=== PATIENT | male | born 1955 | race Caucasian/White ===

== ENCOUNTER 2016-11-23 10:33 | Inpatient (IN) | payer BC ==
[2016-11-23] VITALS (13 sets, daily range): BP systolic 129–177; BP diastolic 49–67; PULSE 56–77; TEMP 98.2–98.9
[~2016-11-23] VITALS: Ht 177.8 cm; Wt 106.0 kg
[~2016-11-23 10:33] MED LIST: CALTRATE-600 W600 MG PO; FERROUS SU325 MG/TAB PO; FISH OIL CONC1000 MG PO; FOLIC ACID PO; FORTAMET500 MG PO; GLUCOSAMINE/CHONDROI PO; IBUPROFEN800 MG PO; LISINOPRIL/HCTZ1 TA1 PO; MVI PO; VITAMIN C500 MG PO; VITAMIN E200 I1 PO
[2016-11-23] MEDS ORDERED: CIPRO 500MG TA500 MG PO (13:59)
[2016-11-23] MEDS ORDERED: PRINZIDE 12.5 M1 TA1 PO (14:00)
[2016-11-23] MEDS ORDERED: NORVASC 10MG10 MG PO (14:00)
[2016-11-23] MEDS ORDERED: GLUCOPHAGE XR500 M1 PO (14:01)
[2016-11-23] MEDS ORDERED: LOPRESSOR 550 MG/TAB PO (14:01)
[2016-11-23] MEDS ORDERED: TYLENOL 325MG325 MG PO (14:03)
[2016-11-23] MEDS ORDERED: ATIVAN 0.50.5 MG/TAB PO (15:57)
[2016-11-23] MEDS ORDERED: ZOCOR 20MG20 MG (15:58)
[2016-11-24 01:54] LABS: HEMATOCRIT 23.9 % (42.0-52.0); HEMOGLOBIN 7.8 g/dl (13.5-18.0)
[2016-11-24 04:34] VITALS: BP 157/63; PULSE 62; TEMP 98.5
[2016-11-24 07:24] VITALS: BP 178/68; PULSE 72; TEMP 97.8
[2016-11-24 07:47] LABS: HEMATOCRIT 24.4 % (42.0-52.0); HEMOGLOBIN 7.7 g/dl (13.5-18.0)
[2016-11-24 11:07] VITALS: BP 142/59; PULSE 51; TEMP 98
[2016-11-24 15:19] VITALS: BP 151/64; PULSE 61; TEMP 98.1
[2016-11-24] MEDS ORDERED: PROTONIX 40MG T40 MG PO (15:46)
[2016-11-24] MEDS ORDERED: ULTRAM 50MG TAB50 MG PO (15:47)
[2016-11-24] MEDS ORDERED: FERROUS SU325 MG/TAB PO (15:50)
[2016-11-24 15:51] VITALS: BP 107/57; PULSE 63
== END 2016-11-24 19:18 | disposition home or self-care (01) | DRG 378 ==
LOC: MEDICAL 11:19
PROVIDERS: Family Medicine; Surgery
PROC: 0DJD8ZZ Inspection of Lower Intestinal Tract, Via Natural or Artificial Opening Endoscopic (ICD-10-PCS; principal; 2016-11-24 14:00)
PROC: 0DJ08ZZ Inspection of Upper Intestinal Tract, Via Natural or Artificial Opening Endoscopic (ICD-10-PCS; 2016-11-24 14:00)
DX: K25.0 Acute gastric ulcer with hemorrhage (principal); D62 Acute posthemorrhagic anemia; I10 Essential (primary) hypertension; E11.9 Type 2 diabetes mellitus without complications; Z85.46 Personal history of malignant neoplasm of prostate; Z87.891 Personal history of nicotine dependence; T39.315A Adverse effect of propionic acid derivatives, initial encounter
CPT/HCPCS: C1751; C9113; J1644; J2704; J7030; P9016

== ENCOUNTER → 2018-04-10 | Outpatient (CLI) | payer BC ==
[~2018-04-10] MED LIST changes: +ATIVAN 0.50.5 MG/TAB PO; +CIPRO 500MG TA500 MG PO; +GLUCOPHAGE XR500 M1 PO; +LOPRESSOR 550 MG/TAB PO; +NORVASC 10MG10 MG PO; +PRINZIDE 12.5 M1 TA1 PO; +PROTONIX 40MG T40 MG PO; +TYLENOL 325MG325 MG PO; +ULTRAM 50MG TAB50 MG PO; +ZOCOR 20MG20 MG
== END ==
LOC: COL.RAD 08:10
DX: M19.011 Primary osteoarthritis, right shoulder (principal)
CPT/HCPCS: J3301; Q9967

== ENCOUNTER 2018-06-28 10:21 | Inpatient (IN) | payer BC ==
[~2018-06-28] VITALS: Ht 172.7 cm; Wt 96.6 kg
[~2018-06-28 10:21] MED LIST changes: -ZOCOR 20MG20 MG; +ZOCOR 20MG20 MG PO
[2018-08-27] VITALS (11 sets, daily range): BP systolic 147–180; BP diastolic 53–63; PULSE 53–84; TEMP 97.7–98.6
[2018-08-27] MEDS ORDERED: TYLENOL W/COD1 UDTAB PO (01:38)
[2018-08-27] MEDS ORDERED: ATIVAN 1MG T1 MG/TAB PO (01:39)
[2018-08-27] MEDS ORDERED: MULTIPLE VITAMI1 CAP PO (01:41)
[2018-08-27] MEDS ORDERED: TYLENOL 8 HR PO (05:33)
--- NOTE | 2018-08-27 06:52 | NUR ---
Patient prepared for surgery with no incidents. Admission B and assessment completed. Med-rec and allergies reviewed and updated. Patient sent down to surgery with Vinny at 0615 per bedcart. Report called to Edu Moreland CRNA.
--- NOTE | 2018-08-27 12:15 | NUR ---
returned to room from PACU per bed, awake and alert but sleepy, IV infusing into left IJ and placed on pump at 100ml/hr, O2 on at 3L/NC, BP cuff on left leg, aquacel dressing to right shoulder CD&I and ice in place, has sensation to left hand and is able to move fingers, full assessment completed, see interventions for further info, denies needs at this time
--- NOTE | 2018-08-27 13:00 | NUR ---
appears to be dozing, has taken sips of water and tolerates well
--- NOTE | 2018-08-27 13:30 | NUR ---
sitting up in bed and having clear liquids, staff assisting him with eating
--- NOTE | 2018-08-27 14:30 | NUR ---
JACK and SW student met with patient to discuss discharge planning. Patient lives in [facility] alone. His PCP is Dr Black and he obtains his medications from [facility]. Patient plans on staying with his sister at discharge however she works 3/4 evenings a week and patient is worried about caring for himself when she is gone. SW talked with him about private paying for a facility or home health. He would like to look into what his insurance would cover for hh. Patient would like referral sent to [facility] . SW called Marco A and faxed referral. Patient does say he has a little money saved to pay for services if needed. JACK will continue to follow to assist in dc planning.
--- NOTE | 2018-08-27 14:50 | NUR ---
reported to me by KATYA Dyson that patient had clear liquids and then had an emesis of approx 150ml, medicated with zofran 4mg slow iV, appears to be sleeping now
--- NOTE | 2018-08-27 15:00 | NUR ---
appears to continue to sleep
--- NOTE | 2018-08-27 16:00 | NUR ---
awake now and talking with social worker health services,
--- NOTE | 2018-08-27 16:19 | NUR ---
JACK received a call from [facility] who reports patients insurance will cover PT/OT/SN with the right orders however they will not cover private duty care. SW met with patient who reports he will think about the option of private paying over night but that he will most likely go with that option as he cant be alone. JACK will follow up tomorrow
--- NOTE | 2018-08-27 16:54 | NUR ---
PT NOT IN ROOM YET, LEFT IS BY SINK.
--- NOTE | 2018-08-27 17:30 | NUR ---
awake resting in bed, offered something to eat but declines at this time as he doesn't want to be sick again, will call when he is ready, denies other needs
--- NOTE | 2018-08-27 18:45 | NUR ---
bedside shift report given to KATYA Colón
--- NOTE | 2018-08-27 20:00 | NUR ---
Assessment completed. Patient is A&O x 4. VSS, currently on 3 liters of supplemental O2 via nasal cannula. Chickasaw started for pain control. Aquacell dressing to right shoulder with a scant amount of drainage noted. Right shoulder abductor in place. Patient denies any tingling or numbness to RUE and is able to move fingers. Patient has a left arm amputation and does require assistance with eating, drinking and any activity. Tolerating small snacks at this time with no c/o nausea, reports not having much of an appetite this evening. Cartagena catheter to DD with yellow clear urine draining. BLE edema noted. BLE scds on. IVF infusing through left internal juglar, flushes well with good blood return. INT to right foot flushes well. Will ambulate with patient later this evening. Bed is in a low position with soft pad touch call light in place. Denies any concerns or needs.
--- NOTE | 2018-08-27 23:00 | NUR ---
Patient up ambulating the burns with assist x 2, after ambulating 100 feet patient stated he needed to stop and was noticed becoming pale and stating he felt a little dizzy. Vitals taken at that time and oxygen saturation noted to be 85%, portable oxygen applied and patient wheeled back to the doorway and was able to ambulate back to the bed. Patient denied feeling dizzy or lightheaded once back into the room. Assisted with getting back into bed. Patient denies any concerns or needs. Bed remains in a low position with soft-pad call light in reach.
[2018-08-28 00:26] VITALS: BP 146/56; PULSE 65; TEMP 99.2
--- NOTE | 2018-08-28 01:13 | NUR ---
Patient is resting in bed, denies any pain or any concerns at this time.
[2018-08-28 03:20] VITALS: BP 154/65; PULSE 64; TEMP 99.3
--- NOTE | 2018-08-28 05:38 | NUR ---
Patient has rested well through the night. VSS, remains on 3 liters of O2 via NC. Pain has been controlled with oral pain regimen. Aquacell dressing to right shoulder remains with a scant amount of drainage, no increase through the shift. Right shoulder abductor sling in place. Cartagena catheter remains to DD with yellow clear urine. Assisting patient with eating, drinking and taking medications. Denies any concerns or needs at this time. Bed remains in a low position with call light in reach.
--- NOTE | 2018-08-28 06:50 | NUR ---
awake resting in bed, bedside shift report received from KATYA Colón
--- NOTE | 2018-08-28 07:50 | NUR ---
resting in bed, full assessment completed, see interventions for further info, he is hot and diaphoretic but states this is normal for him, denies pain, will assist with ordering breakfast
[2018-08-28 09:06] VITALS: BP 161/57; PULSE 70; TEMP 99.6
--- NOTE | 2018-08-28 11:00 | NUR ---
up in chair and denies pain or needs
--- NOTE | 2018-08-28 11:28 | NUR ---
SW student left VM for Marco A, with [facility], regarding possible HH and private duty services for patient. SW to continue to follow.
[2018-08-28 12:00] VITALS: BP 184/81; PULSE 61; TEMP 98.8
--- NOTE | 2018-08-28 12:00 | NUR ---
remains up in chair, denies needs
--- NOTE | 2018-08-28 13:05 | NUR ---
assisted him with eating lunch, c/o pain and medicated with hydrocodone 7.5mg 2 tabs for c/os pain 12/18
--- NOTE | 2018-08-28 15:00 | NUR ---
awake and visiting with a friend
--- NOTE | 2018-08-28 16:02 | NUR ---
Tracy, with [facility], came and talked to the patient about private care nursing. SW student met with patient afterwards to check in. Patient reports that Tracy will be back tomorrow morning (08/29) around 1000 to fill out some paperwork. Patient states that he is agreeable with the plan to go home with his sister and have private pay nursing through [facility] during the hours that his sister is at work. Patient is agreeable to private pay. Patient did state [facility] may not be able to start until Sunday. Patient is going to ask his brother to help with care over the weekend when his sister has work. SW to continue to follow.
--- NOTE | 2018-08-28 16:08 | NUR ---
physical and occupational therapy were in to work with patient, assisted back to bed, garcia catheter disconinued
[2018-08-28 16:40] VITALS: BP 162/51; PULSE 66; TEMP 99.1
--- NOTE | 2018-08-28 17:42 | NUR ---
assisted him with ordering supper
--- NOTE | 2018-08-28 18:45 | NUR ---
bedside shift report given to KATYA Colón and KATYA Linares, supper here and [employer] in to assist him with eating, visiting with brother
[2018-08-28 19:32] VITALS: BP 145/63; BP 165/63; PULSE 67; TEMP 99.3
--- NOTE | 2018-08-28 19:38 | NUR ---
Report received from KATYA Soto. Patient is sitting up in bed and requested right shoulder abductor sling be re-adjusted. Sat up on the edge of the bed to re-adjust and noted RIJ dressing was almost off, new sterile dressing placed and dated. Patient reports pain 5/10 to right shoulder, denies needing any pain medication at this time. Bed is in a low position with soft-pad call light in reach.
--- NOTE | 2018-08-28 19:50 | NUR ---
Assessment completed. Patient is A&O x 4. VSS, currently on 2 liters of supplemental O2 via nasal cannula. Reports minimal pain to right shoulder at this time, denies needing any pain medication at this time. Aquacell dressing to right shoulder has a scant amount of drainage. Right shoulder abductor sling in place. Patient has full sensation to RUE. Left internal triple lumen jugular flushes well with good blood return, dressing changed this shift. Tolerating diet with no c/o nausea. Voiding with no difficulities. 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 Denies any concerns or needs at this time. Bed is in a low position with soft-pad call light in reach. Discussed ambulating in the hallway later this evening and patient agreed.
--- NOTE | 2018-08-28 23:26 | NUR ---
Patient ambulated at this time in the hallway with assist x 1, gait steady. Denied feeling dizzy or lightheaded. Assisted with repositioning back into bed and adjusting right shoulder brace. Fresh ice pack applied to right shoulder. Denies any concerns or needs at this time, soft-pad call light is within reach.
--- NOTE | 2018-08-29 01:58 | NUR ---
Patient up to the bathroom with standby assist, gait steady. Patient has been able to get himself up and down from the bed with minimal assistance. Once back to bed O2 sats checked and patient was at 86% on room air. 1.5 liters of supplemental O2 applied via NC and O2 sats came back up to 93%
[2018-08-29 03:38] VITALS: BP 155/64; PULSE 65; TEMP 97.7
--- NOTE | 2018-08-29 04:49 | NUR ---
Patient has rested well for the majority of the night, did wake up early this morning and stated he had a nightmare and had been sweating. Tempearture taken and was 97.7. Remains on 1 liter of O2 to keep O2 sats above 90% Reports minimal pain to right shoulder, denies needing any pain medication. Aquacell dressing to right shoulder with small amount of drainage, no increase through the shift. Fresh ice pack applied to right shoulder. Patient has been up with standby assist to the restroom through the night with a steady gait. BLE scds removed at this time. Denies any concerns or needs, call light is within reach.
[2018-08-29 07:17] VITALS: BP 186/53; PULSE 66; TEMP 98.8
[2018-08-29 12:05] VITALS: BP 165/53; PULSE 62; TEMP 98.6
[2018-08-29 17:06] LABS: BASO % 0.3 % (0.0-2.0); EOS # 0.3 (0.0-0.7); EOS % 3.2 % (0-4.0); GRAN # 8.3 (1.4-6.5); GRAN % 77.4 % (42.2-75.2); LYMPH # 0.8 (1.2-3.4); LYMPH % 7.6 % (20.0-51.0); MEAN CELL VOLUME 93 fl (80.0-100.0); MEAN CORPUSCULAR HGB CONC 32 g/dl (33.0-37.0); MEAN PLATELET VOLUME 10.5 fl (7.4-10.4); MONO # 1.2 (0.1-0.6); MONO % 10.9 % (1.7-9.3); PLATELET COUNT 153 K/mm3 (130-400); RED BLOOD COUNT 3.13 M/mm3 (4.20-5.60); REDCELL DISTRIBUTION WIDTH-CV 13.4 % (11.5-14.5)
[2018-08-29 17:09] LABS: HEMOGLOBIN 9.4 g/dl (13.5-18.0); MEAN CORPUSCULAR HEMOGLOBIN 30 pg (27.0-31.0)
[2018-08-29 17:25] LABS: BILIRUBIN,TOTAL 0.2 mg/dL (0.0-1.0); CALCIUM 8.5 mg/dL (8.4-10.2); CREATININE, serum 1.18 mg/dL (0.66-1.25); POTASSIUM 4.6 mmol/L (3.4-5.0); TOTAL PROTEIN 5.7 gm/dL (6.4-8.2)
[2018-08-29 18:12] VITALS: BP 155/48; PULSE 65
[2018-08-29 20:02] VITALS: BP 213/53; PULSE 92; TEMP 100.3
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
[2018-08-29 23:31] VITALS: BP 163/59; PULSE 66; TEMP 99
[2018-08-30 04:07] VITALS: BP 188/56; PULSE 82; TEMP 99
--- NOTE | 2018-08-30 05:13 | NUR ---
UNEVENTFUL NIGHT. PT REST/SLEEPING IN BED. HAS BEEN ASSISTED UP SEVERAL TIMES TO THE BATHROOM. PT HAS NOT HAD A BOWEL MOVEMENT AGAIN SINCE FIRST SHIFT. PT REFUSED THE STOOL SOFTENERS BECAUSE OF SEVERAL LOOSE STOOLS THAT HE HAS HAD. PT DENIES PAIN OR DISCOMFORT AT THIS TIME. CALL LIGHT WITHIN REACH.
[2018-08-30 06:41] LABS: BASO % 0.4 % (0.0-2.0); EOS # 0.2 (0.0-0.7); EOS % 2.6 % (0-4.0); GRAN # 6.6 (1.4-6.5); GRAN % 77.9 % (42.2-75.2); LYMPH # 0.8 (1.2-3.4); LYMPH % 9.3 % (20.0-51.0); MEAN CELL VOLUME 93 fl (80.0-100.0); MEAN CORPUSCULAR HGB CONC 32 g/dl (33.0-37.0); MEAN PLATELET VOLUME 10.6 fl (7.4-10.4); MONO # 0.8 (0.1-0.6); MONO % 9.4 % (1.7-9.3); PLATELET COUNT 155 K/mm3 (130-400); RED BLOOD COUNT 2.99 M/mm3 (4.20-5.60); REDCELL DISTRIBUTION WIDTH-CV 13.5 % (11.5-14.5)
[2018-08-30 06:44] LABS: HEMATOCRIT 27.7 % (42.0-52.0); HEMOGLOBIN 8.8 g/dl (13.5-18.0); MEAN CORPUSCULAR HEMOGLOBIN 29 pg (27.0-31.0)
[2018-08-30 06:49] LABS: CALCIUM 8.7 mg/dL (8.4-10.2); CREATININE, serum 0.95 mg/dL (0.66-1.25); POTASSIUM 4.6 mmol/L (3.4-5.0)
--- NOTE | 2018-08-30 07:05 | NUR ---
bedside shift report received from KATYA stephens
--- NOTE | 2018-08-30 07:45 | NUR ---
c/o heartburn/indigestion, given tums 1000mg, breakfast here, student will assist him with eating
[2018-08-30 08:00] VITALS: BP 183/58; PULSE 81; TEMP 98.6
--- NOTE | 2018-08-30 08:43 | NUR ---
in bed and appears to be sleeping, resp quiet and easy
--- NOTE | 2018-08-30 08:50 | NUR ---
physical therapy in to work with patient and ambulated out in the burns
[2018-08-30] MEDS ORDERED: ROXICODONE 55 MG/TAB PO (09:00)
[2018-08-30] MEDS ORDERED: ASPI325T6 PO (09:00)
[2018-08-30] MEDS ORDERED: NORCO 325 MG-7.1 TAB PO (09:00)
--- NOTE | 2018-08-30 09:00 | NUR ---
Assessment completed, patient is A&O x 4. VSS. Central line to L jugular is CDI. Patient has +2 pitting edema in BLE. Patient is laying in bed with SCDs running on BLE. Patient ate breakfast with assistance and had no nausea/vomiting. No complaints of pain at this time. Call light within reach.
--- NOTE | 2018-08-30 09:32 | NUR ---
sitting up in recliner after working with physical therapy, into bathroom with therapy and had large semiformed bowel movement and therapist assited with hygiene,
--- NOTE | 2018-08-30 10:39 | NUR ---
sitting up on bench seat, c/o being cold and will provide a blanket
--- NOTE | 2018-08-30 11:29 | NUR ---
Louie Villa notified of hospitalist consulting Dr Hansen
--- NOTE | 2018-08-30 11:38 | NUR ---
full assesment completed, have reviewed assessment completed by student nurse and in agreement with that assessment
--- NOTE | 2018-08-30 11:55 | NUR ---
JACK faxed dc orders to [facility] for private duty HH when his sister is at work. He will be doing outpatient therapy for PT/OT. Patient dc home today with sister and no other discharge needs.
[2018-08-30 12:00] VITALS: BP 160/65; PULSE 67; TEMP 99.5
--- NOTE | 2018-08-30 12:46 | NUR ---
resting in bed, assisted to sitting up and fed him his lunch, tolerated well, student nurse changed aquacel dressing to right shoulder and it is CD&I
--- NOTE | 2018-08-30 13:32 | NUR ---
Patient is laying in bed after eating lunch. Spent the morning in the recliner with family at bedside. Patient is ambulating to the bathroom and having bowel movements with no signs of bloody stool. Performed dressing change to R shoulder with Aquacel dressing, incision is well approximated with alden intact. No complaints of pain at this time. Call light within reach.
--- NOTE | 2018-08-30 15:00 | NUR ---
up to bathroom with assistance and then back to bed
--- NOTE | 2018-08-30 15:55 | NUR ---
Dr Hansen in to see and visit with patient
[2018-08-30 16:35] VITALS: BP 183/54; PULSE 77; TEMP 98.9
[2018-08-30] MEDS ORDERED: PROTONIX 40MG T40 MG PO (17:01)
--- NOTE | 2018-08-30 17:02 | NUR ---
up to bathroom independently,
--- NOTE | 2018-08-30 17:30 | NUR ---
left IJ discontined and pressure placed fo 6 minutes after removal, pressure dressing placed, instructed could remove in 24 hours, tolerated well
--- NOTE | 2018-08-30 18:00 | NUR ---
discharge instructions given to patient and his sister, verbalizes understanding, assisted into bathroom before discharge
--- NOTE | 2018-08-30 18:20 | NUR ---
discharged per WC
== END 2018-08-30 18:20 | disposition home health service (06) | DRG 483 ==
LOC: SURG 08-27 05:06 → JCC 08-27 07:30 → SURG 08-28 08:49
PROVIDERS: Physician Assistant; ADMIT Orthopaedic Surgery
PROC: 0RRJ00Z Replacement of Right Shoulder Joint with Reverse Ball and Socket Synthetic Substitute, Open Approach (ICD-10-PCS; principal; 2018-08-27 07:30)
DX: M19.011 Primary osteoarthritis, right shoulder (principal); J96.01 Acute respiratory failure with hypoxia; K92.1 Melena; E11.40 Type 2 diabetes mellitus with diabetic neuropathy, unspecified; I10 Essential (primary) hypertension; Z89.222 Acquired absence of left upper limb above elbow; E78.5 Hyperlipidemia, unspecified; Z85.46 Personal history of malignant neoplasm of prostate; Z87.891 Personal history of nicotine dependence; D64.9 Anemia, unspecified
CPT/HCPCS: 99222; 99233-AI; A4314; A4619; A9284; C1713; C1751; C1776; J0360; J0670; J0690; J2250; J2405; J2704; J3010; J3370; J7030; J7050

== ENCOUNTER → 2018-08-16 | Outpatient (CLI) | payer BC ==
[~2018-08-16] MED LIST changes: +ZOCOR 20MG20 MG; -ZOCOR 20MG20 MG PO
[2018-08-16 13:57] LABS: HIV 1/2 Antibodies Non-Reactive; HIV-1p24 Antigen Non-Reactive
== END ==
LOC: COL.LAB 12:12
PROVIDERS: Orthopaedic Surgery
DX: Z01.812 Encounter for preprocedural laboratory examination (principal); M19.011 Primary osteoarthritis, right shoulder

== ENCOUNTER 2019-06-16 11:31 | Inpatient (IN) | payer MEDICARE, BC ==
[~2019-06-16] VITALS: Ht 172.7 cm; Wt 136.4 kg
[2019-06-16] VITALS (24 sets, daily range): BP systolic 109; BP diastolic 57; PULSE 73; TEMP 33.6; O2SAT 83–97
[~2019-06-16 11:31] MED LIST changes: +ASPI325T6 PO; +ATIVAN 1MG T1 MG/TAB PO; +MULTIPLE VITAMI1 CAP PO; +NORCO 325 MG-7.1 TAB PO; +ROXICODONE 55 MG/TAB PO; +TYLENOL 8 HR PO; +TYLENOL W/COD1 UDTAB PO; -ZOCOR 20MG20 MG; +ZOCOR 20MG20 MG PO
[2019-06-16 11:49] LABS: HEMATOCRIT 51.3 % (42.0-52.0); HEMOGLOBIN 14.7 g/dl (13.5-18.0); MEAN CELL VOLUME 104 fl (80.0-100.0); MEAN CORPUSCULAR HEMOGLOBIN 30 pg (27.0-31.0); MEAN CORPUSCULAR HGB CONC 29 g/dl (33.0-37.0); MEAN PLATELET VOLUME 10.4 fl (7.4-10.4); PLATELET COUNT 308 K/mm3 (130-400); RED BLOOD COUNT 4.93 M/mm3 (4.20-5.60); REDCELL DISTRIBUTION WIDTH-CV 14.7 % (11.5-14.5)
[2019-06-16 11:52] LABS: PROTHROMBIN TIME 12.2 SECONDS (9.7-12.8)
[2019-06-16 12:10] LABS: CALCIUM 8.2 mg/dL (8.4-10.2); CREATININE, serum 1.8 (0.66-1.25); MAGNESIUM 3.1 mg/dL (1.6-2.3); POTASSIUM 5.3 mmol/L (3.4-5.0); TOTAL PROTEIN 6.8 gm/dL (6.4-8.2)
[2019-06-16 12:24] LABS: TROPONIN-I 0.049 ng/mL (0.000-0.035)
[2019-06-16 12:32] LABS: ARTERIAL BLD GAS O2 SATURATION 99.3 % (92-100); ARTERIAL BLD GAS TCO2 CT 22.5; ARTERIAL BLOOD GAS BASE EXCESS -8.8 (-2-2); ARTERIAL BLOOD GAS HCO3 20.6 meq/L (22-26); ARTERIAL BLOOD GAS PCO2 60.6 mmHg (35-45)
[2019-06-16 12:33] LABS: ARTERIAL BLOOD GAS PO2 282.9 mmHg (80-100); ARTERIAL BLOOD GAS pH 7.15 (7.35-7.45)
--- NOTE | 2019-06-16 13:12 | NUR ---
Initial visit; Patient's family thanked Store Director for offering spiritual care and contacting patient's Sales And Marketing Intern.
--- NOTE | 2019-06-16 13:30 | NUR ---
Pt arrived with KATYA Goodman, RT Tamie and KATYA Dodd. Pt transfered to ICU bed from [facility]. Itraosseous IV in place to left tibia infusing NS to gravity and Epinephrine gtt infusing at 0.02mcg/kg/min (8.2mL/hr) without difficulty. Assessment complete: Pupils dilated and fixed, lung and cardiac sounds diminished and muffled. Automated vitals attached. MD Abbe-MD Amanda - MD Freddie and MD Андрей consults called and aware of pt in ICU. 1340 Family (brother Jesus and sister Ann Marie) in waiting room tearful. Update provided and plan of care education provided: mechanical ventilation, vasopressor support and required central line IV access and hypothermia protocol. Jesus and Ann Marie both stated "Tim would not want aggressive care or kept alive by artificial means or machines". 1350 MD Freddie at bedside reviewing with JesusMonyZakia and pt's neice and brother on new plan of care: family expressed and all agreed upon discontinuing mechanical ventilation and transitioning to comfort care. 1400 Tiffani Schuler RN and Chaplain Mason at bedside. Dining services provided comfort care gift basket. MD Abbe updated Pt extubated at 1435 with RT Tamie and KATYA Ambrocio and Epinepherine gtt discontinued while family steppd out of room to converence room and brought back in after repositioning and oral care. Aystole noted at 1447, Time of called by MD Freddie at 1447. Glass Calibrator Dunia notified
--- NOTE | 2019-06-16 13:39 | NUR ---
PT TRANSPORTED FROM ER TO CT SCAN FOR HEAD AND CHEST ON TRANSPORT VENT. PT THEN TRANSPORTED TO ICU 4 AND PLACED ON PREVIOUSLY DOCUMENTED SETTINGS. NO CHANGES TO SETTINGS AT THIS TIME.
--- NOTE | 2019-06-16 13:41 | NUR ---
DRY MOLDER student responded to a code blue to the ED for the patient. DRY MOLDER student contacted [facility] . The patient does not have advanced directives in the EMR. The patient has two siblings, Evan and Ann Marie (Sarah) . According to Evan the patient has never been and does not have any children. The patient is being moved to ICU. account services manager will continue to follow.
--- NOTE | 2019-06-16 15:02 | NUR ---
Internet Sales Associate follow-up; Internet Sales Associate looked in on family prior to removal of life support. Family stated since their Liner Man had been with them earlier they would decline further pastoral care.
--- NOTE | 2019-06-16 15:15 | NUR ---
The family decided to go to [facility]. BAG END SEWER student provided support to the family. The patient at 1447. The patient's family chose [facility] on [facility] . BAG END SEWER student collborated the above information with the patient's nurse and household personal assistant.
--- NOTE | 2019-06-16 15:15 | NUR ---
Dunia Chaudhrybusiness solution analyst contacted [facility] Reference # [id number] No patient belongings or valuables with pt - confirmed with Sharon
--- NOTE | 2019-06-16 17:49 | NUR ---
[facility] contacted for update - family is not answering [facility]'s phone call. Orders over the phone provided to KATYA Duqueelevator examiner and adjuster: Elevate head of bed to 30degrees, apply ice to all extremities and torso, apply saline to moisten both eyes and cover with ice. Orders carried out
--- NOTE | 2019-06-16 18:01 | NUR ---
PT PLACED ON VENTILATOR S/P CODE BLUE FROM EMS. ABG PENDING. CXR JUST TAKEN. PLEASE SEE ADDITIONAL CHARTING.
--- NOTE | 2019-06-17 00:38 | NUR ---
Patient left facility with transport agent from [facility].
== END 2019-06-17 00:38 | disposition expired | DRG 64 ==
LOC: COL.ER 11:31 → ICU 12:03 → COL.ER 12:46 → ICU 06-17 00:38
PROVIDERS: Emergency Medicine; ADMIT Family Medicine
PROC: 5A12012 Performance of Cardiac Output, Single, Manual (ICD-10-PCS; principal; 2019-06-16)
PROC: 5A1935Z Respiratory Ventilation, Less than 24 Consecutive Hours (ICD-10-PCS; 2019-06-16)
DX: I63.9 Cerebral infarction, unspecified (principal); J96.01 Acute respiratory failure with hypoxia; I21.4 Non-ST elevation (NSTEMI) myocardial infarction; J96.02 Acute respiratory failure with hypercapnia; E87.0 Hyperosmolality and hypernatremia; E87.2 Acidosis; N17.9 Acute kidney failure, unspecified; I42.9 Cardiomyopathy, unspecified; S27.0XXA Traumatic pneumothorax, initial encounter; I46.9 Cardiac arrest, cause unspecified; E87.6 Hypokalemia; E83.42 Hypomagnesemia; R74.0 Nonspecific elevation of levels of transaminase and lactic acid dehydrogenase [LDH]; D75.89 Other specified diseases of blood and blood-forming organs; I45.10 Unspecified right bundle-branch block; H40.9 Unspecified glaucoma; M19.90 Unspecified osteoarthritis, unspecified site; E66.01 Morbid (severe) obesity due to excess calories; Z89.202 Acquired absence of left upper limb, unspecified level; Z79.82 Long term (current) use of aspirin; Z79.84 Long term (current) use of oral hypoglycemic drugs; Z79.891 Long term (current) use of opiate analgesic; Z51.5 Encounter for palliative care
CPT/HCPCS: 99222-AI; C9113; J0171; J7030; Q9967